=== PATIENT | male | born 1955 | race Two or more races ===

== ENCOUNTER 2017-08-24 19:47 | Outpatient (CLI) | payer MEDICARE | END 2017-08-24 19:48 | disposition short-term general hospital (02) | LOC: EMS 19:47 | PROVIDERS: ATTEND Surgery | DX: R09.89 Other specified symptoms and signs involving the circulatory and respiratory systems (principal); R53.1 Weakness; R11.2 Nausea with vomiting, unspecified | CPT/HCPCS: A0425; A0427 ==

== ENCOUNTER 2017-09-01 09:47 | Emergency (ER) | payer MEDICARE ==
[2017-09-01] MEDS ORDERED: ONDANSETRON 4 MG/2 ML VIAL IVP STA (10:31)
[2017-09-01] MEDS ORDERED: SODIUM CHLORIDE 0.9% 1,000 ML IV ONE ×2 (10:31→12:25)
--- NOTE | 2017-09-01 10:34 | ED Physician Documentation ---
PD HPI NVD - Stated complaint Stated Complaint: VOMITING - Chief complaint Chief Complaint: General - History obtained from History obtained from: Patient, Family - History of Present Illness Timing - onset: How many days ago (6) Timing - duration: Days (6) Timing - details: Gradual onset, Still present, Waxing and waning Associated symptoms: Near syncope / syncope, Loss of appetite. 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 He has a prior history of diabetic gastroparesis and has had a single episode of this years ago. He has recently been hospitalized at [facility] with a placement of a pacemaker. He was noted on to have cardiac arrest he was resuscitated by family members with CPR and was transferred to [facility]. The patient reports he had some vomiting starting while he was in the hospital and has continued to vomit daily since. His sister is concerned about his level of dehydration. Review of Systems Constitutional: denies: Fever, Chills, Myalgias Eyes: reports: Decreased vision Ears: reports: Loss of hearing. denies: Ear pain Nose: denies: Rhinorrhea / runny nose, Congestion Throat: denies: Sore throat Cardiac: denies: Chest pain / pressure, Palpitations Respiratory: denies: Dyspnea, Cough GI: reports: Nausea, Vomiting. denies: Abdominal Pain : denies: Dysuria, Frequency Skin: denies: Rash Musculoskeletal: denies: Neck pain, Back pain, Extremity pain PD PAST MEDICAL HISTORY - Past Medical History Past Medical History: Yes Cardiovascular: Hypertension, High cholesterol, Arrhythmia Endocrine/Autoimmune: Type 2 diabetes GI: GERD HEENT: Chronic vision loss, Chronic hearing loss - Past Surgical History Past Surgical History: Yes Cardiovascular: Pacemaker - Present Medications Home Medications: Ambulatory Orders Medication Instructions Recorded Confirmed Aspirin Chewable [[place] 81 mg PO DAILY 09/01/17 09/01/17 Aspirin] Atorvastatin [Lipitor] 0 mg 09/01/17 Diltiazem HCl [Diltiazem 24Hr ER] 360 mg PO DAILY #2 tab.er.24h 09/01/17 Diltiazem HCl [Diltiazem HCl Cd] 360 mg PO 09/01/17 Doxycycline Monohydrate 100 mg PO 09/01/17 Linagliptin [Tradjenta] 5 mg PO 09/01/17 09/01/17 Linagliptin [Tradjenta] 5 mg PO DAILY #2 tablet 09/01/17 Lipase/Protease/Amylase [Riki Honeycutt 1 each PO 09/01/17 12,000 Units Capsule] Lipase/Protease/Amylase [Riki Honeycutt 2 each PO TID #12 capsule.dr 09/01/17 12,000 Units Capsule] Lisinopril 10 mg PO 09/01/17 Metoclopramide [Reglan] 10 mg PO Q6H 09/01/17 09/01/17 Nepafenac [Ilevro] 1.7 ml OP 09/01/17 Omeprazole 20 mg PO 09/01/17 Ondansetron Odt [Zofran] 4 mg TL Q6H PRN #10 tablet 09/01/17 metFORMIN [Glucophage] 500 mg PO BIDWM 09/01/17 09/01/17 - Allergies Allergies/Adverse Reactions: Allergies Allergy/AdvReac Type Severity Reaction Status Date / Time No Known Drug Allergies Allergy Verified 09/01/17 09:52 - Social History Does the pt smoke?: No Smoking Status: Never smoker PD ED PE NORMAL - Vitals Vital signs reviewed: Yes (Normal) - General General: No acute distress, Well developed/nourished - HEENT HEENT: Atraumatic - Neck Neck: Supple, no meningeal sign - Cardiac Cardiac: RRR, No murmur - Respiratory Respiratory: No respiratory distress, Clear bilaterally - Abdomen Abdomen: Soft, Non tender - Back Back: No CVA TTP, No spinal TTP - Derm Derm: Normal color, Warm and dry, No rash - Extremities Extremities: No deformity, No edema - Neuro Neuro: No motor deficit, No sensory deficit Eye Opening: Spontaneous Motor: Obeys Commands Verbal: Oriented GCS Score: 15 - Psych Psych: Normal mood, Normal affect Results - Vitals Vitals: Vital Signs - 24 hr 09/01/17 09/01/17 09/01/17 09:53 11:23 13:02 Temperature 35.7 C L Heart Rate 81 76 72 Respiratory 18 14 15 Rate Blood Pressure 108/74 124/73 133/71 H O2 Saturation 100 98 96 01/02/18 01/02/18 01/02/18 13:15 14:22 15:22 Temperature 36.2 C L 35.7 C L Heart Rate 72 68 65 Respiratory 16 13 12 Rate Blood Pressure 130/69 142/74 H 130/68 O2 Saturation 98 99 98 Oxygen O2 Source Room air - Labs Labs: Laboratory Tests 09/01/17 09/01/17 09/01/17 10:23 10:23 10:23 WBC 11.3 H RBC 4.58 L Hgb 13.3 L Hct 39.8 L MCV 86.9 MCH 28.9 MCHC 33.3 RDW 14.9 Plt Count 170 MPV 9.0 Neut # 9.1 H Lymph # 1.0 L [place] # 0.9 Eos # 0.2 Baso # 0.1 Absolute Nucleated RBC 0.00 Nucleated RBC % 0.0 VBG pH VBG pCO2 VBG pO2 VBG HCO3 VBG Total CO2 VBG O2 Saturation VBG Base Excess Sodium 131 L Potassium 3.3 L Chloride 91 L Carbon Dioxide 29 Anion Gap 11.0 BUN 27 H Creatinine 1.7 H Estimated GFR (MDRD) 41 L Glucose 195 H Calcium 8.9 Total Bilirubin 1.1 H AST 14 ALT 16 Alkaline Phosphatase 65 Troponin I < 0.04 Total Protein 6.3 L Albumin 3.3 Globulin 3.0 Albumin/Globulin Ratio 1.1 Lipase 14 L Urine Color Urine Clarity Urine pH Ur Specific [place] Urine Protein Urine Glucose (UA) Urine Ketones Urine Occult Blood Urine Nitrite Urine Bilirubin Urine Urobilinogen Ur Leukocyte Esterase Ur Microscopic Review Urine Culture Comments Serum Ketones 09/01/17 09/01/17 09/01/17 10:23 10:44 13:54 WBC RBC Hgb Hct MCV MCH MCHC RDW Plt Count MPV Neut # Lymph # [place] # Eos # Baso # Absolute Nucleated RBC Nucleated RBC % VBG pH 7.432 H VBG pCO2 40.7 L VBG pO2 43.2 VBG HCO3 26.5 VBG Total CO2 27.8 VBG O2 Saturation 80.1 H VBG Base Excess 2.1 H Sodium Potassium Chloride Carbon Dioxide Anion Gap BUN Creatinine Estimated GFR (MDRD) Glucose Calcium Total Bilirubin AST ALT Alkaline Phosphatase Troponin I Total Protein Albumin Globulin Albumin/Globulin Ratio Lipase Urine Color YELLOW Urine Clarity CLEAR Urine pH 6.0 Ur Specific [place] 1.015 Urine Protein NEGATIVE Urine Glucose (UA) 250 H Urine Ketones 15 H Urine Occult Blood NEGATIVE Urine Nitrite NEGATIVE Urine Bilirubin NEGATIVE Urine Urobilinogen 0.2 (NORMAL) Ur Leukocyte Esterase NEGATIVE Ur Microscopic Review NOT INDICATED Urine Culture Comments NOT INDICATED Serum Ketones SMALL H Procedures - IVC sono (time) 1020 Bedside IVC sono: IVC measures (cm) (0.62), Significant dehydration PD MEDICAL DECISION MAKING - ED course Complexity details: reviewed old records, reviewed results, re-evaluated patient , considered differential, d/w patient, d/w family ED course: 62-year-old male type I diabetic with a recent pacemaker placement has developed nausea and vomiting he is significantly dehydrated on arrival to the emergency department. IV saline is begun. He is given a does of zofran and feels improved. He does develop vomiting and after 2 liters saline in he is given zofran TL and a fluid trial. He does pass the fluid challenge. Departure - Departure Disposition: 01 Home, Self Care Clinical Impression: Diabetic gastroparesis Condition: Stable Instructions: ED Diabetic Gastroparesis Follow-Up: Your, doctor [Other] Prescriptions: Diltiazem HCl [Diltiazem 24Hr ER] 360 mg PO DAILY #2 tab.er.24h Linagliptin [Tradjenta] 5 mg PO DAILY #2 tablet Lipase/Protease/Amylase [Riki Honeycutt 12,000 Units Capsule] 2 each PO TID #12 capsule. Ondansetron Odt [Zofran] 4 mg TL Q6H PRN #10 tablet PRN Reason: Nausea / Vomiting
[2017-09-01 10:35] LABS: BASOPHILS # (AUTO) 0.1 10^3/uL (0.0-0.1); BASOPHILS % (AUTO) 0.5 %; EOSINOPHILS # (AUTO) 0.2 10^3/uL (0.0-0.7); EOSINOPHILS % (AUTO) 1.8 %; HGB - HEMOGLOBIN 13.3 g/dL (14.0-18.0); MEAN CORPUSCULAR HEMOGLOBIN 28.9 pg (27.0-31.0); MEAN CORPUSCULAR HGB CONC 33.3 g/dL (32.0-36.0); MEAN CORPUSCULAR VOLUME 86.9 fL (80.0-94.0); MONOCYTES # (AUTO) 0.9 10^3/uL (0.0-1.0); MONOCYTES % (AUTO) 7.9 %; NEUTROPHILS # (AUTO) 9.1 10^3/uL (1.5-6.6); NEUTROPHILS % (AUTO) 80.8 %; PLT - PLATELET COUNT 170 10^3/uL (130-450); RED BLOOD COUNT 4.58 10^6/uL (4.70-6.10); RED CELL DISTRIBUTION WIDTH 14.9 % (12.0-15.0); WHITE BLOOD COUNT 11.3 x10^3/uL (4.8-10.8)
[2017-09-01 10:49] LABS: VBG BASE EXCESS 2.1 mmol/L (-2 - +2); VBG PCO2 40.7 mmHg (41-51); VBG PH 7.432 (7.31-7.41); VBG PO2 43.2 mmHg (25-47); VBG TOTAL CO2 27.8 mmol/L (24-29)
[2017-09-01 10:49] LABS: ALBUMIN 3.3 g/dL (3.2-5.5); ALBUMIN/GLOBULIN RATIO 1.1 (1.0-2.2); BILIRUBIN,TOTAL 1.1 mg/dL (0.2-1.0); CALCIUM 8.9 mg/dL (8.5-10.3); CREATININE 1.7 mg/dL (0.6-1.2); TOTAL PROTEIN 6.3 g/dL (6.7-8.2)
[2017-09-01 14:03] LABS: BILIRUBIN,URINE NEGATIVE (NEGATIVE); GLUCOSE, URINE (UA) 250 mg/dL (NEGATIVE); KETONES,URINE (UA) 15 mg/dL (NEGATIVE); LEUKOCYTE ESTERASE, URINE NEGATIVE (NEGATIVE); NITRITE,URINE NEGATIVE (NEGATIVE); OCCULT BLOOD,URINE NEGATIVE (NEGATIVE); PROTEIN,URINE NEGATIVE (NEGATIVE); UROBILINOGEN,URINE 0.2 (NORMAL) E.U./dL (NORMAL)
[2017-09-01 14:06] LABS: CLARITY,URINE CLEAR (CLEAR)
[2017-09-01] MEDS ORDERED: ONDANSETRON ODT 4 MG TABLET TL STA (15:29)
[2017-09-01 16:52] VITALS: BP 137/73
== END 2017-09-01 16:56 | disposition home or self-care (01) ==
LOC: ED 09:47
DX: E10.43 Type 1 diabetes mellitus with diabetic autonomic (poly)neuropathy (principal); K31.84 Gastroparesis; I45.2 Bifascicular block; E86.0 Dehydration; I10 Essential (primary) hypertension; E78.00 Pure hypercholesterolemia, unspecified; H91.90 Unspecified hearing loss, unspecified ear; H54.7 Unspecified visual loss; Z79.82 Long term (current) use of aspirin; Z95.0 Presence of cardiac pacemaker; Z86.74 Personal history of sudden cardiac arrest
CPT/HCPCS: 36415; 80053; 81003; 82009; 82803; 83690; 84484; 85025; 93005; 96361; 96374; 99284; Q0162; 81001; 87086